=== PATIENT | male | born 2000 | race Caucasian/White ===

== ENCOUNTER 2023-07-23 14:46 | Emergency (ER) | payer OTHER ==
[~2023-07-23] VITALS: Ht 177.8 cm; Wt 79.5 kg
[2023-07-23 14:48] VITALS: BP 144/76; TEMP 98; O2SAT 100
[2023-07-23] MEDS ORDERED: LEVE500T5 PO (15:07)
[2023-07-23] MEDS ORDERED: AUGMENTIN 875 MG TAB PO ONE (15:45)
[2023-07-23] MEDS: KETOROLAC 60MG 2ML VIAL IM ONE ×2 (15:45→15:56)
[2023-07-23] MEDS ORDERED: BENZOCAINE 10% 9GM TUBE (ANBESOL) MT STA (15:45)
[2023-07-23] MEDS ORDERED: AMOX875T2 PO (15:51)
[2023-07-23] MEDS ORDERED: ANBE20GE TOP (15:51)
[2023-07-23] MEDS ORDERED: NAPR-837 PO (15:51)
== END 2023-07-23 16:12 | disposition home or self-care (01) ==
LOC: M ED 14:46
DX: S01.502A Unspecified open wound of oral cavity, initial encounter (principal); K03.81 Cracked tooth; G40.909 Epilepsy, unspecified, not intractable, without status epilepticus; J45.909 Unspecified asthma, uncomplicated; Z79.2 Long term (current) use of antibiotics; Z79.899 Other long term (current) drug therapy

== ENCOUNTER 2023-07-29 19:44 | Emergency (ER) | payer OTHER ==
[~2023-07-29] VITALS: Ht 177.8 cm; Wt 79.5 kg
[~2023-07-29 19:44] MED LIST: AMOX875T2 PO; ANBE20GE TOP; LEVE500T5 PO; NAPR-837 PO
[2023-07-29 20:18] LABS: APPEARANCE, URINE CLEAR (CLEAR); BACTERIA, URINE AUTO NEGATIVE (NEGATIVE); BILIRUBIN, URINE AUTO NEGATIVE (NEGATIVE); BLOOD, URINE BLOOD NEGATIVE (NEGATIVE); COLOR, URINE YELLOW (YELLOW); GLUCOSE, URINE (UA) AUTO NEGATIVE (NEGATIVE); KETONE, URINE AUTO NEGATIVE (NEGATIVE); LEUKOCYTE ESTERASE, URINE AUTO NEGATIVE (NEGATIVE); MUCUS, URINE SMALL (NEGATIVE); NITRITE, URINE AUTO NEGATIVE (NEGATIVE); PROTEIN, URINE AUTO 1+ mg/dL (NEGATIVE); RBC, URINE AUTO 1 /HPF (0-3); SPECIFIC GRAVITY URINE AUTO 1.015 (1.002-1.035); SQUAMOUS EPITHELIAL CELL UR AU 0 /HPF (0-6); UROBILINOGEN, URINE AUTO 0.2 mg/dL (0.0-2.0); WBC, URINE AUTO 3 /HPF (0-3)
[2023-07-29 21:41] LABS: GC DNA AMPLIFICATION NEGATIVE (NEGATIVE)
[2023-07-29] MEDS ORDERED: AZITHROMYCIN 250MG TABLET PO ONE (21:50)
[2023-07-29 21:58] VITALS: BP 173/94; TEMP 97.9; O2SAT 98
== END 2023-07-29 22:15 | disposition home or self-care (01) ==
LOC: M ED 19:44
DX: Z20.2 Contact with and (suspected) exposure to infections with a predominantly sexual mode of transmission (principal); J45.909 Unspecified asthma, uncomplicated; Z79.2 Long term (current) use of antibiotics; Z79.899 Other long term (current) drug therapy

== ENCOUNTER 2024-01-24 20:19 | Emergency (ER) | payer BC, OTHER ==
[~2024-01-24] VITALS: Ht 175.3 cm; Wt 73.6 kg
[2024-01-24 20:19] VITALS: BP 121/61; TEMP 97.1; O2SAT 98
== END 2024-01-24 23:59 | disposition home or self-care (01) ==
LOC: M ED 20:19
DX: L05.91 Pilonidal cyst without abscess (principal); J45.909 Unspecified asthma, uncomplicated; F17.200 Nicotine dependence, unspecified, uncomplicated; F12.10 Cannabis abuse, uncomplicated; Z79.2 Long term (current) use of antibiotics; Z79.1 Long term (current) use of non-steroidal anti-inflammatories (NSAID); Z79.899 Other long term (current) drug therapy

== ENCOUNTER 2024-05-03 15:22 | Emergency (ER) | payer BC ==
[~2024-05-03] VITALS: Ht 177.8 cm; Wt 70.1 kg
[2024-05-03 16:55] VITALS: BP 122/65; TEMP 96.8; O2SAT 97
== END 2024-05-03 16:57 | disposition home or self-care (01) ==
LOC: M ED 15:22
DX: M25.532 Pain in left wrist (principal); W19.XXXA Unspecified fall, initial encounter; J45.909 Unspecified asthma, uncomplicated; F17.200 Nicotine dependence, unspecified, uncomplicated; Y92.9 Unspecified place or not applicable; Y93.67 Activity, basketball; Y99.9 Unspecified external cause status; Z79.899 Other long term (current) drug therapy